=== PATIENT | male | born 1960 | race Caucasian/White ===

== ENCOUNTER 2024-12-28 11:36 | Inpatient (IN) | payer OTHER, SELFPAY ==
[2024-12-28] VITALS (12 sets, daily range): BP systolic 101–158; BP diastolic 54–91; PULSE 50–61; RESP 12–22; TEMP 36.2–36.6; O2SAT 95–99; BMI 25.7
--- NOTE | 2024-12-28 11:55 | DI.RAD.S_ITS ---
PROCEDURE: XR CHEST 1V INDICATIONS: Possible stroke TECHNIQUE: One view of the chest was acquired. COMPARISON: None. FINDINGS: Surgical changes and devices: None. Lungs and pleura: Lungs are clear. No pleural effusions or pneumothorax. Mediastinum: Mediastinal contours appear normal. Heart size is normal. Bones and chest wall: No suspicious bony lesions. Overlying soft tissues appear unremarkable. IMPRESSION: No acute cardiopulmonary abnormality is seen. Approved by: Jeerl Walters M.D. on 12/28/2024 at 11:11
--- NOTE | 2024-12-28 11:55 | EKG_ITS ---
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
--- NOTE | 2024-12-28 11:55 | DI.CT.S_ITS ---
PROCEDURE: CT ANGIO HEAD AND NECK INDICATIONS: Difficulty speech TECHNIQUE: After the administration of intravenous contrast, 1 mm thick sections acquired from the aortic arch through the [place] of [place]. MIP reformats of the arterial vasculature were utilized. COMPARISON: None. FINDINGS: Cerebral CT Angiogram: Internal carotid arteries: No acute findings. Intracranial ICA are patent with no significant stenosis. No occlusion. No aneurysm. Anterior cerebral arteries: Unremarkable. No significant stenosis. No occlusion. No aneurysm. Middle cerebral arteries: Unremarkable. No significant stenosis. No occlusion. No aneurysm. Posterior cerebral arteries: Unremarkable. No significant stenosis. No occlusion. No aneurysm. Basilar artery: Unremarkable. No significant stenosis. No occlusion. No aneurysm. Vertebral arteries: Unremarkable as visualized. Dural venous sinuses: Unremarkable given phase of enhancement. Other: Arterial phase appearance of the brain parenchyma is unremarkable. Neck CT Angiogram: Internal carotid arteries: Unremarkable. No significant stenosis. No dissection or occlusion. Common carotid arteries: Unremarkable. No significant stenosis. No dissection or occlusion. External carotid arteries: Unremarkable. No occlusion. Vertebral arteries: Unremarkable. No significant stenosis. No dissection or occlusion. Aortic Arch and Mediastinum: Partially visualized aortic arch unremarkable without evidence of aneurysm. Origins of the great vessels unremarkable. Other: Arterial phase soft tissues of the neck and chest are unremarkable. IMPRESSION: Unremarkable CT angiogram of the head and neck without large vessel occlusion, aneurysm or vascular malformation Approved by: Jerel Walters M.D. on 12/28/2024 at 11:36
--- NOTE | 2024-12-28 11:55 | DI.CT.S_ITS ---
PROCEDURE: CT STROKE Left maxillary mucosal retention cyst INDICATIONS: Positive BE-FAST, Stroke symptoms TECHNIQUE: Noncontrast 4.5 mm thick angled axial sections acquired from the foramen magnum to the vertex, with coronal reformats. For radiation dose reduction, the following was used: automated exposure control, adjustment of mA and/or kV according to patient size. COMPARISON: None. FINDINGS: Image quality: Diagnostic. CSF spaces: Basal cisterns are patent. No extra-axial fluid collections. Ventricles are normal in size and shape. Brain: No midline shift. No intracranial mass effect or hemorrhage. Campos- white matter interface is normal. Skull and face: Calvarium and visualized facial bones are intact, without suspicious lesions. Sinuses: Visualized sinuses and mastoids are clear. IMPRESSION: No acute intracranial pathology. Note: Critical results were discussed with Dr. Farrell at 11:09 AM [place] time on 12/28/24 Approved by: Jerel Walters M.D. on 12/28/2024 at 11:11
--- NOTE | 2024-12-28 11:56 | ED_ITS ---
HPI - General Adult General Chief complaint: Neuro Symptoms/Deficit Stated complaint: Little confused;having hard time speaking/thinking Time Seen by Provider: 12/28/24 11:54 History of Present Illness HPI narrative: 64 years old male came today after having difficulty speech noticed at 8 45 this morning when he put the hand gel management department chair in the console of his car and told his that he put the tooth paste instead of hand management department chair. His asked him you mentioned tooth paste and he was having difficulty talking back with hesitancy. After the he was able to talk but some difficulty off and on. He denied any numbness weakness on his face, his arm or his legs, headache, nausea vomiting, chest pain, shortness of breath, urine problem, diarrhea, constipation, fever, runny nose, sore throat, coughing. Two days ago he complained of chest pain but went away. Related Data Allergies Allergy/AdvReac Type Severity Reaction Status Date / Time Penicillins Allergy Verified 12/28/24 11:59 Review of Systems Review of Systems Narrative: Positive for difficulty speech. Negative for chest pain, shortness of breath, nausea vomiting, headache, fever, runny nose, sore throat, coughing, urine problem, diarrhea, constipation, numbness weakness on his legs, facial droop. Exam Initial Vital Signs Initial Vital Signs: Vital Signs Pulse Rate 50 L 12/28/24 11:48 Respiratory Rate 19 12/28/24 11:48 Pulse Oximetry 98 12/28/24 11:48 Scores NIH Stroke Scale Level of Conciousness: Alert, keenly responsive Ask month/age: Answers both questions correctly. Open/close eyes, close hand: Performs both tasks correctly Best gaze horizontal: Normal Visual cantu: No visual loss Facial palsy: Normal symetrical movement Left arm drift: No drift for full 10 sec Right arm drift: No drift for full 10 sec Left leg drift: No drift for full 5 sec Right leg drift: No drift for full 5 sec Limb ataxia: Absent Sensory on face/arms/legs: Normal, no sensory loss Best language: No aphasia, normal Dysarthria: Mild to mod,some slurring Extinction or inattention: No abnormality Total NIH Stroke scale score: 1 Course Orders Ordered: ED Orders 12/28/24 11:50 Complete Blood Count AUTO DIFF Stat Comprehensive Metabolic Panel Stat PTT Partial Thromboplastin Ian Stat Prothrombin Time INR Stat Troponin & CK Cardiac Panel Stat 12/28/24 11:[address] angio head and neck Stat XR chest 1V Stat EKG-12 Lead Stat 12/28/24 11:58 MR head/brain wo con Stat 12/28/24 14:27 UA Complete [Urinalysis and Microscopic] Stat Urine Drug Screen, Rapid Stat Ondansetron HCl (Ondansetron 4 Mg/2 Ml Inj) 4 mg IV NOW PRN PRN Reason: Nausea And Vomiting Ondansetron HCl (Ondansetron 4 Mg Odt) 4 mg PO NOW PRN PRN Reason: Nausea And Vomiting Vital Signs Vital signs: Vital Signs - 8 hr 12/28/24 11:48 12/28/24 11:55 12/28/24 12:05 Temperature 97.8 F Pulse Rate 50 L 50 L 50 L Respiratory Rate 19 16 Blood Pressure 146/77 H Pulse Oximetry 98 99 99 Oxygen Delivery Method Room Air 12/28/24 12:07 12/28/24 12:07 12/28/24 12:50 Temperature Pulse Rate 53 L 57 L Respiratory Rate 20 20 Blood Pressure 158/91 H Pulse Oximetry 98 Oxygen Delivery Method 12/28/24 12:51 12/28/24 12:51 12/28/24 13:00 Temperature Pulse Rate 53 L 58 L Respiratory Rate 22 14 Blood Pressure 137/79 Pulse Oximetry 99 99 Oxygen Delivery Method 12/28/24 13:00 12/28/24 13:30 12/28/24 14:00 Temperature Pulse Rate 57 L 59 L Respiratory Rate 20 Blood Pressure 148/90 H Pulse Oximetry 97 97 Oxygen Delivery Method Medical Decision Making Lab Data 12/28/24 11:50 12/28/24 11:50 Labs: Lab Results 12/28/24 12/28/24 12/28/24 Range/Units 11:50 14:20 14:20 WBC 5.5 (4.5-11.0) X10^3/uL RBC 4.78 (4.5-5.9) X10^6/uL Hgb 15.3 (13.5-17.5) g/dL Hct 44.3 (41-53) % MCV 92.6 (80-100) fL MCH 31.9 (26-34) PG MCHC 34.5 (30-36) % RDW 12.3 (11.6-14.8) % Plt Count 202 (150-400) X10^3/uL Neut % (Auto) 49.9 L (50-75) % Lymph % (Auto) 37.6 (25-40) % [place] % (Auto) 9.8 (3-14) % Eos % (Auto) 2.2 (2-4) % Baso % (Auto) 0.5 (0-2) % Neut # (Auto) 2700 (2585-4326) /uL Lymph # (Auto) 2100 (0854-7586) /uL [place] # (Auto) 500 (0-900) /uL Eos # (Auto) 100 (0-450) /uL Baso # (Auto) 0 (0-100) /uL PT 11.7 (9.4-12.5) SECONDS INR 1.0 (0.9-1.3) APTT 29 (25.1-36.5) SECONDS Sodium 140 (137-145) mmol/L Potassium 4.2 (3.4-5.1) mmol/L Chloride 104 (98-107) mmol/L Carbon Dioxide 29 (22-32) mmol/L BUN 17 (9-20) mg/dL Creatinine 0.92 (0.66-1.25) mg/dL Estimated GFR > 60 (>60) mL/min BUN/Creatinine Ratio 18.5 (6-22) Glucose 95 (70-99) mg/dL Calcium 9.2 (8.4-10.2) mg/dL Total Bilirubin 1.0 (0.2-1.3) mg/dL AST 31 (17-59) IU/L ALT 25 (<50) IU/L Alkaline Phosphatase 74 (38-126) U/L Total Creatine Kinase 85 (55-170) U/L Troponin I < 0.012 (0.01-0.034) ng/mL Total Protein 7.8 (6.3-8.2) g/dL Albumin 4.7 (3.5-5.0) g/dL Globulin 3.1 (1.7-4.1) g/dL Albumin/Globulin Ratio 1.5 (1.0-2.8) Urine Color Yellow Urine Appearance Clear Urine pH 6.5 Normal (4.5-8.0) Ur Specific [place] 1.015 (1.000-1.035) Urine Protein 2+ H (Negative) Urine Glucose (UA) Negative (Negative) g/dL Urine Ketones Negative (NEGATIVE) Urine Occult Blood Negative (Negative) Urine Nitrate Negative (Negative) Urine Bilirubin Negative (NEGATIVE) Urine Urobilinogen 0.2 (0.2) E.U./dL Ur Leukocyte Esterase Negative (NEGATIVE) Urine RBC None seen (0-5/HPF) Urine WBC 0-1/hpf (0-5/HPF) Ur Squamous Epith Cells None seen (0-5/HPF) Urine Bacteria Few (2-10) H (None) Ur Culture Indicated? Cult not indicated Vol Urine Centrifuged 10ml (spun) U Opiates 300ng/mL cut Negative (Negative) Ur Oxycodone Screen Negative (Negative) Urine Methadone Screen Negative (Negative) Ur Barbiturates Screen Negative (Negative) U Tricyclic Antidepress Negative (Negative) Ur Phencyclidine Scrn Negative (Negative) Ur Amphetamines Screen Negative (Negative) U Methamphetamines Scrn Negative (Negative) Ur MDMA Scrn (Ecstasy) Negative (Negative) U Benzodiazepines Scrn Negative (Negative) Urine Cocaine Screen Negative (Negative) U Marijuana (THC) Screen Negative (Negative) Urine Specific [place] Normal (Normal) Ur Creatinine Normal (Normal) [facility] Narrative Medical decision making narrative: 64 years old male came today after having difficulty speech noticed at 8 45 this morning when he put the hand gel management department chair in the console of his car and told his that he put the tooth paste instead of hand management department chair. His asked him you mentioned tooth paste and he was having difficulty talking back with hesitancy. After the he was able to talk but some difficulty off and on. He denied any numbness weakness on his face, his arm or his legs, headache, nausea vomiting, chest pain, shortness of breath, urine problem, diarrhea, constipation, fever, runny nose, sore throat, coughing. Two days ago he complained of chest pain but went away. 12:11 p.m. I got a phone call from radiologist about CT brain without contrast showed no acute finding. Neuro exam showed difficulty naming objects. Otherwise neuro exam showed no focal deficits. No facial droop. EOM was intact. No sign of head injury. His alert oriented x4 with a acute distress. His CV exam, lung exam, abdominal exam were normal. Sensation was equal on both arms and legs. Normal [id number] test both legs. 2:32 p.m. I discussed the case with [facility] stroke neurologist Dr. Gallardo recommended aspirin 325 mg, Plavix 300 mg 1st dose then 75 mg for 21 days then the patient can continue with aspirin 325 mg daily. Lipitor 40 mg, neuro checks, shelter monitor, echocardiogram, blood pressure management and could start him on amlodipine if hypertension. I discussed the case with our hospitalist and the patient was accepted to the hospital.
--- NOTE | 2024-12-28 11:58 | DI.MRI.S_ITS ---
PROCEDURE: MR HEAD/BRAIN WO CON INDICATIONS: Difficulty speech TECHNIQUE: Noncontrast axial T1 spin echo, axial T2 fast spin echo, sagittal and axial FLAIR, coronal T2 fast spin echo, axial gradient echo, axial diffusion and ADC through the brain. COMPARISON: [facility], CT, CT STROKE, 12/28/2024, 11:56. FINDINGS: CSF Spaces: Basal cisterns are patent. No extra-axial fluid collections. Ventricles are normal in size and shape. Brain: Restricted diffusion noted in the anterior left thalamus. Susceptibility weighted sequence unremarkable. No intracranial hemorrhage or extra-axial fluid collections Skull and face: Calvarium has normal marrow signal. Orbits appear normal. Sinuses: Sinuses and mastoids are clear. IMPRESSION: Acute to subacute anterior left thalamic infarct Approved by: Jerel Walters M.D. on 12/28/2024 at 12:49
[2024-12-28 12:01] LABS: Add Manual Diff / Slide Review NO; Hematocrit 44.3 % (41-53); Hemoglobin 15.3 g/dL (13.5-17.5); Lymphocytes Absolute Auto 2100 /uL (1100-4500); Mean Corpuscular HGB Conc 34.5 % (30-36); Mean Corpuscular Hemoglobin 31.9 PG (26-34); Mean Corpuscular Volume 92.6 fL (80-100); Platelet Count 202 X10^3/uL (150-400)
[2024-12-28 12:11] LABS: INR 1.0 (0.9-1.3); Prothrombin Time 11.7 SECONDS (9.4-12.5)
[2024-12-28 12:13] LABS: PTT Partial Thromboplastin Tim 29 SECONDS (25.1-36.5)
--- NOTE | 2024-12-28 12:13 | PC.NURSE ---
64 yo M arrives with . lives in [place] and at 0845 in the car, incorrectly referred to the hand apprentice painter neckties as toothpaste. is having as hard time articulating words. reports it is 1927 and quickly corrected himself. [facility] 1 for incorrectly identifying pictures--called the mouse and orange. No focal weakness and pt ambulated into the department. mild confusion that states is not baseline for him. noted to be bradycardic 50-53 without known history. denies cp and SOB.
[2024-12-28 12:14] LABS: Alanine Aminotransferase 25 IU/L (<50); Albumin 4.7 g/dL (3.5-5.0); Albumin Globulin Ratio 1.5 (1.0-2.8); Alkaline Phosphatase 74 U/L (38-126); Blood Urea Nitrogen 17 mg/dL (9-20); Calcium 9.2 mg/dL (8.4-10.2); Carbon Dioxide 29 mmol/L (22-32); Chloride 104 mmol/L (98-107); Creatine Kinase 85 U/L (55-170); Estimated Glomerular Filt Rate > 60 mL/min (>60); Globulin 3.1 g/dL (1.7-4.1); Glucose 95 mg/dL (70-99); HEMOLYSIS < 15 (0-50); Potassium 4.2 mmol/L (3.4-5.1); Sodium 140 mmol/L (137-145); Total Protein 7.8 g/dL (6.3-8.2)
[2024-12-28 12:26] LABS: Troponin I < 0.012 ng/mL (0.01-0.034)
[2024-12-28 14:37] LABS: Appearance Urine UA CLEAR; Bilirubin Urine UA NEGATIVE (NEGATIVE); Color Urine UA YELLOW; Glucose Urine UA NEGATIVE (Negative); Ketones Urine UA NEGATIVE (NEGATIVE); Leukocyte Esterase Urine UA NEGATIVE (NEGATIVE); Nitrite Urine UA NEGATIVE (Negative); Occult Blood Urine UA NEGATIVE (Negative); Protein Urine UA 2+ (Negative); Specific Gravity Urine UA 1.015 (1.000-1.035); Urobilinogen Urine UA 0.2 E.U./dL (0.2); pH Urine UA 6.5 (4.5-8.0)
[2024-12-28 14:42] LABS: Culture Indicated Urine Cult Not Indicated
[2024-12-28 14:43] LABS: UR Morphine/Opiate cutoff 300 Negative (Negative); Ur Specific Gravity Normal (Normal); Urine MDMA Negative (Negative); Urine Methamphetamines Negative (Negative); Urine Tetrahydrocannabinol Negative (Negative); Urine Tricyclic Antidepressant Negative (Negative)
[2024-12-28] MEDS: ASPIRIN EC 325 MG TABLET PO (14:55)
[2024-12-28] MEDS: CLOPIDOGREL 75 MG TABLET 300 MG PO (14:55)
--- NOTE | 2024-12-28 16:15 | P.HP_ITS ---
History of Present Illness History of Present Illness Date Patient Seen: 12/28/24 Time Patient Seen: 16:46 Chief complaint: Little confused;having hard time speaking/thinking Narrative: Patient was a 64-year-old male who presented with behaviors and some speech difficulties. He was up from [place] with his who is working in [employer] today. He woke up not feeling quite right and she detected some odd behaviors in the car including putting toothpaste in the Consul in the middle of the front seat for unclear reasons. She also noted some odd statements. She told him to take a nap thinking he might have been short on sleep. His symptoms however were persistent. She brought him to the ED. there he had a family normal neurologic exam but has had some communication effects. Imaging did indicate a brainstem infarct which is acute. He was no history of TIA or stroke. He had no antecedent symptoms. [facility], [facility] Social History household members: spouse Smoking Status: Never smoker alcohol intake: never Meds Home Medications and Allergies Home Medications ?Medication ?Instructions ?Recorded ?Confirmed ?Type inhalat.spacing dev,large mask 12/28/24 12/28/24 Hist ory (Compact Space Chamber-Lrg Mask) Allergies Allergy/AdvReac Type Severity Reaction Status Date / Time Penicillins Allergy Verified 12/28/24 11:59 Review of Systems Review of Systems Narrative: All else reviewed and otherwise unremarkable except as noted in the history and physical. No recent headaches, or trauma. Exam Vital Signs (past 8 hours): - 12/28/24 11:48 12/28/24 11:55 12/28/24 12:05 Temperature 97.8 F Pulse Rate 50 L 50 L 50 L Respiratory Rate 19 16 Blood Pressure 146/77 H Pulse Oximetry 98 99 99 Oxygen Delivery Method Room Air Oxygen Flow Rate 12/28/24 12:07 12/28/24 12:07 12/28/24 12:50 Temperature Pulse Rate 53 L 57 L Respiratory Rate 20 20 Blood Pressure 158/91 H Pulse Oximetry 98 Oxygen Delivery Method Oxygen Flow Rate 12/28/24 12:51 12/28/24 12:51 12/28/24 13:00 Temperature Pulse Rate 53 L 58 L Respiratory Rate 22 14 Blood Pressure 137/79 Pulse Oximetry 99 99 Oxygen Delivery Method Oxygen Flow Rate 12/28/24 13:00 12/28/24 13:30 12/28/24 14:00 Temperature Pulse Rate 57 L 59 L Respiratory Rate 20 Blood Pressure 148/90 H Pulse Oximetry 97 97 Oxygen Delivery Method Oxygen Flow Rate 12/28/24 15:56 Temperature 97.1 F L Pulse Rate 54 L Respiratory Rate 16 Blood Pressure 127/70 Pulse Oximetry 97 Oxygen Delivery Method Oxygen Flow Rate 0 Oxygen Delivery Method Room Air Oxygen Flow Rate 0 Narrative Exam Narrative: Objective ECG Impression: Intervals [place] Rate: 54 P: 43 [place]: 172 QRS: 47 QRSD: 92 T: 58 QT: 434 QTc: 411 Interpretive Statements Sinus bradycardia Imaging Multiple studies:: Radiologist's impression: Brain CT: No acute intracranial pathology. Chest x-ray: No acute cardiopulmonary abnormality is seen. Head neck CTA: Unremarkable CT angiogram of the head and neck without large vessel occlusion, aneurysm or vascular malformation Brain MRI: Acute to subacute anterior left thalamic infarct Labs 12/28/24 11:50 12/28/24 11:50 Labs: Laboratory Results - last 24 hr 12/28/24 12/28/24 12/28/24 11:50 14:20 14:20 WBC 5.5 RBC 4.78 Hgb 15.3 Hct 44.3 MCV 92.6 MCH 31.9 MCHC 34.5 RDW 12.3 Plt Count 202 Neut % (Auto) 49.9 L Lymph % (Auto) 37.6 [place] % (Auto) 9.8 Eos % (Auto) 2.2 Baso % (Auto) 0.5 Neut # (Auto) 2700 Lymph # (Auto) 2100 [place] # (Auto) 500 Eos # (Auto) 100 Baso # (Auto) 0 PT 11.7 INR 1.0 APTT 29 Sodium 140 Potassium 4.2 Chloride 104 Carbon Dioxide 29 BUN 17 Creatinine 0.92 Estimated GFR > 60 BUN/Creatinine Ratio 18.5 Glucose 95 Calcium 9.2 Total Bilirubin 1.0 AST 31 ALT 25 Alkaline Phosphatase 74 Total Creatine Kinase 85 Troponin I < 0.012 Total Protein 7.8 Albumin 4.7 Globulin 3.1 Albumin/Globulin Ratio 1.5 Urine Color Yellow Urine Appearance Clear Urine pH 6.5 Normal Ur Specific [place] 1.015 Urine Protein 2+ H Urine Glucose (UA) Negative Urine Ketones Negative Urine Occult Blood Negative Urine Nitrate Negative Urine Bilirubin Negative Urine Urobilinogen 0.2 Ur Leukocyte Esterase Negative Urine RBC None seen Urine WBC 0-1/hpf Ur Squamous Epith Cells None seen Urine Bacteria Few (2-10) H Ur Culture Indicated? Cult not indicated Vol Urine Centrifuged 10ml (spun) U Opiates 300ng/mL cut Negative Ur Oxycodone Screen Negative Urine Methadone Screen Negative Ur Barbiturates Screen Negative U Tricyclic Antidepress Negative Ur Phencyclidine Scrn Negative Ur Amphetamines Screen Negative U Methamphetamines Scrn Negative Ur MDMA Scrn (Ecstasy) Negative U Benzodiazepines Scrn Negative Urine Cocaine Screen Negative U Marijuana (THC) Screen Negative Urine Specific [place] Normal Ur Creatinine Normal Assessment & Plan Assessment & Plan narrative: 1. Acute CVA, active. PLAN: -discussed with tele stroke, recommendations for dual antiplatelet therapy with a Plavix load as well as high-dose statin. -serial NIH. -PT, OT, and speech evaluations. Anticipate 2 midnights in the hospital, supports inpatient status. Full resuscitation is proxy decision maker. Time-Based Coding :: 35 min spent with patient and on the chart (including review of chart, obtaining history, exam, reviewing outside data, placing orders, documenting exam and treatment plan, and counseling patient) on 12/28. Quality VTE Deep Vein Thrombosis/Pulmonary Embolism Present on Admission: No MIPS - Admit I confirm the patient?s Advance Care Plan is present, Code status is documented, Surrogate decision maker is in patient?s record [If Yes, STOP here]: Yes MIPS - Meds 'Current medications' to include all prescriptions, [id number] products, herbals, cannabis/cannabidiol products, and vitamin/mineral/dietary (nutritional) supplements. I have utilized all available resources to obtain, update, or review the patient?s current medications. [If Yes, STOP here]: Yes
[2024-12-28 16:53] LABS: Cholesterol 230 mg/dL (140-199); HDL Cholesterol 37 mg/dL (40-60); Triglycerides 96 mg/dL (35-150)
[2024-12-28 16:55] LABS: Hemoglobin A1C% w Est Avg Glu 5.6 % (4.0-6.0)
[2024-12-28] MEDS: ATORVASTATIN 20 MG TABLET 80 MG PO (20:13)
[2024-12-28] MEDS: SODIUM CHLORIDE 0.9% FLUSH 10 ML IV (20:13)
[2024-12-29 05:00] VITALS: BP 105/65; PULSE 52; RESP 18; TEMP 36.2; O2SAT 96
[2024-12-29 06:12] LABS: Thyroid Stimulating Hormone 1.52 uIU/mL (0.47-4.68)
[2024-12-29 08:00] VITALS: BP 126/72; PULSE 59; RESP 16; TEMP 36; O2SAT 96
--- NOTE | 2024-12-29 09:48 | PT.IIE ---
Current Diagnoses Cerebral infarction, unspecified (12/28/24) Physical Therapy Inpatient Evaluation/Re-Eval M1 PT IP Prior Functional Status Start: 12/29/24 09:35 Freq: NEEDED Status: Active Protocol: Document 12/29/24 09:19 DCW (Rec: 12/29/24 09:47 DCW [id number]) Medical Review Prior Functional Status Medical History Yes Reviewed Communication Makes needs known Mobility and Gait Independent Activities of Daily Independent Living and IADL's Prior Functional Independent Level (Other details ) Social History Household Members spouse Living Arrangements House Number of Floors ( Two Floors Floors) Number of Stairs To 1 Enter/Railing? M2 PT-IP Current Condition Start: 12/29/24 09:35 Freq: NEEDED Status: Active Protocol: Document 12/29/24 09:19 DCW (Rec: 12/29/24 09:47 DCW [id number]) Physical Therapy Current Condition Current Condition Evaluation Date 12/29/24 Treatment Diagnosis Confusion, memory and word finding issues, fatigue Onset Date 12/28/24 M3 PT-IP Subjective Start: 12/29/24 09:35 Freq: NEEDED Status: Active Protocol: Document 12/29/24 09:19 DCW (Rec: 12/29/24 09:47 DCW [id number]) Subjective Physical Therapy Visit Type Type Initial Evaluation Visit Start Time 09:19 Visit Stop Time 09:38 Notes Pt supine in bed upon therapist entering. Agreeable to therapy. Pt notes he feels much better than yesterday, just tired. Denies any pain. Number of UTILITY AGENT Visits 0 Physical Therapy Visit Comments Patient Comments I feel better than I thought I would today. Therapy Pain Assessment Pain Present Pain Present Denied Pain M4 PT-IP Mobility and Gait Start: 12/29/24 09:35 Freq: NEEDED Status: Active Protocol: Document 12/29/24 09:19 DCW (Rec: 12/29/24 09:47 DCW [id number]) PT-Bed Mobility Assessment Rolling Level of Assist Independent Supine to Sit Supine to Sit Independent Sit to Supine Sit to Supine Independent Scooting Scooting to Edge of Independent Bed PT-Transfer Assessment Sit to and From Stand Sit to and from Independent Stand Equipment Transfer Assistive None Device Gait Assessment Gait Gait Assistance Standby Assistance Required: Distance (Feet) 200 Able to Maintain Yes Weight Bearing Status During Gait Assistive Devices Assistive Device Gait Belt Gait Deviations General Gait Pattern Within Normal Limits Stair Climbing Assessment Evaluation Level of Assist On Independent Stairs Devices Stair Climbing Left Railing,Right Railing Assistive Devices Technique/Endurance Stair Climbing Ascend and Descend Direction Stair Climbing Step Over Step Technique Number of Steps 3 Climbed Query Text: Stair Climbing Set # 4 Repetitions (reps) Comments Stair Climbing Pt ascended and descended steps independently with use Comments of bilateral rail. PT-Balance Assessment Sitting Balance and Reactions Static Sitting Normal Balance Ability Dynamic Sitting Normal Balance Ability Standing Balance and Reactions Static Standing Normal Balance Ability Dynamic Standing Normal Balance Ability Balance Tests Single Limb Standing 10+ seconds bilaterally Comments Other Balance Tests/ Stands EOB EO/EC without support for 20+ seconds Deviations/Treatment : M5 PT-IP Objective Assessments Start: 12/29/24 09:35 Freq: NEEDED Status: Active Protocol: Document 12/29/24 09:19 DC (Rec: 12/29/24 09:47 DC [id number]) Orientation Orientation/Cognition Level of Alertness Alert Orientation Name,Birthday,Month,Date,Year,Place,Situation Language Function Word Finding Difficulties Ability Safety Awareness Understands Safety Issues Memory Description No Deficits Noted Comments Mild word finding difficulties Gross Range of Motion Lower Extremity ROM Assessment Within Functional Limits Strength Lower Extremity Strength Assessment Within Functional Limits Coordination Assessment Gross Coordination Gross Coordination WNL M7 PT-IP Assessment and Plan Start: 12/29/24 09:35 Freq: NEEDED Status: Active Protocol: Document 12/29/24 09:19 DC (Rec: 12/29/24 09:47 DC [id number]) PT Summary Assessment and Plan Potential Rehabilitation Excellent Potential Status of Condition Stable at Evaluation Summary Assessment Summary Pt demonstrates largely independent function in bed mobility, transfers, gait, and stairs. No notable safety deficits seen at this time. Pt ambulates down hallway to stairs ~100', ascended/descended stairs x4, and then ambulated back to room independently with no LOB. Pt demonstrated some mild word finding difficulty near end of session, noted some fatigue. From a safety standpoint, pt likely to do well with discharge home when medically cleared. Does not appear to require further inpatient PT at this time. Frequency of Treatment Frequency Of Discharge Treatment Recommendations To Nursing Amount of Assist Independent,Standby Assistance Needed Discharge Recommendations PT Discharge Home Recommendations Transportation Needs Private Vehicle at Discharge
[2024-12-29] MEDS: ASPIRIN EC 81 MG TABLET PO (10:44)
[2024-12-29] MEDS: SODIUM CHLORIDE 0.9% FLUSH 10 ML IV ×2 (10:45→20:39)
[2024-12-29] MEDS: CLOPIDOGREL 75 MG TABLET PO (10:45)
--- NOTE | 2024-12-29 11:43 | CM.DANOTE ---
B DCP Assessment note pt is a 64yo M admitted with slurred speech and AMS. 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 echo pending. TINTER PHOTOGRAPH reviewed EMR. per chart, pt here visiting from out of town with spouse. per provider, speech improving, pending echo results may dc later today. per PT rec home no needs. no obvious CM needs identified per chart review. unable to meet with pt at this time due to triaging needs. P: home later today vs tomorrow with OP f/u. spouse to transport home. will continue to follow in case any additional DCP needs should arise JAKY Ignacio Discharge Planning/Care Management CM Discharge Assessment Start: 12/28/24 15:24 Freq: Status: Active Protocol: Document 12/29/24 11:42 SL (Rec: 12/29/24 11:43 SL [id number]) Discharge Planning Assessment Assigned Discharge JAKY Salinas Fabrication Engineer Provider out of town PCP Insurance Comment [employer] MCR DPOA/Assigned Spouse, Megan Designee Name Contact Information [phone] Advance Directives? No History Provided By Patient Prior Living House Arrangements Household Members spouse Type of Drives own vehicle transporation used prior to admit Independent with ADL Yes 's Is patient alert and Yes oriented? Barriers to No Discharge Discharge Plan Home Referrals Initiated None needed Review Status In Process Please Provide Date 12/29/24 Initial DC Assessment Was Performed Next Review Type Continued Stay Review
[2024-12-29 12:40] VITALS: BP 128/74; PULSE 55; RESP 16; TEMP 36.3; O2SAT 95
--- NOTE | 2024-12-29 14:23 | ST.IPSLE ---
Visit Care Team Role Provider Type Emily Farrell MD Emergency Provider Physician Referring Provider Specialty: Emergency Medicine Address: [address] [place] [address], [id number] Fax: Email: [email or web address] Jules Tran MD Admit Provider Physician Attending Provider Specialty: Internal Medicine Address: [address] [place] [address], [id number] Email: Current Diagnoses Cerebral infarction, unspecified (12/28/24) Speech-Language Pathology Speech/Language Eval RECORDER OF DEEDS Adult Cognitive Linguistic Eval Start: 12/29/24 13:56 Freq: Status: Active Protocol: Document 12/29/24 13:56 SS (Rec: 12/29/24 14:22 SS Desktop) Adult Cognitive Linguistic Evaluation Session Time Visit Start Time 13:25 Visit Stop Time 13:55 Total Visit Minutes 30 Visit Information Visit Number [address] Jules Tran MD Reason for Referral s/p brainstem infarct Setting Assessment Location Acute Care Visit Type Note Type Initial evaluation Next Note Type Next Note Type Treatment Note Patient Information Identification Type Name Patient History Per H&P: Patient was a 64-year-old male who presented with behaviors and some speech difficulties. He was up from [place] with his who is working in [employer] today. He woke up not feeling quite right and she detected some odd behaviors in the car including putting toothpaste in the Consul in the middle of the front seat for unclear reasons. She also noted some odd statements. She told him to take a nap thinking he might have been short on sleep. His symptoms however were persistent. She brought him to the ED. there he had a family normal neurologic exam but has had some communication effects. Imaging did indicate a brainstem infarct which is acute. He was no history of TIA or stroke. He had no antecedent symptoms. Assessment completed to assess pt's current cognitive- communication function and expressive-receptive language. 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 Pt reported new onset of word-finding difficulty and feeling forgetful . In conversation, pt was able to respond to all RECORDER OF DEEDS questions appropriately and appeared to understand complex questions/statements without overt difficulty. While most of his language was coherent and made sense given context, he made several statements that did not relate to the context (e.g., I'm trying to make sense of what is real in my head. I'm thinking in a dream). When RECORDER OF DEEDS asked him to clarify, he was not able to. Pt reported he was independent with all IADLs at baseline and lives with his spouse. Pt passed nursing swallowing screen and has not had swallowing difficulties. Additionally, dysarthria symptoms seem to have fully resolved. Mental Status Alert,Responsive,Cooperative Assessment Oral Motor No Examination Completed Informal Assessment Receptive Language No Normal Receptive Language Comprehension of complex yes/no questions,Following 2- Impairment(s) step commands,Following 3-step commands,Comprehension of conversation Expressive Language No Normal Expressive Language Divergent naming,Expression of complex thoughts/ideas Impairment(s) Pragmatic Language Yes Normal Speech Normal Yes Cognition Normal No Cognitive Impairment Short-term memory,Executive functioning,Reasoning, (s) Thought organization Formal Assessment Standardized Test/ [facility] Mental Status (UMS) Screener Type Administration Complete Results The [facility] Mental Status (UMS) Examination was used to obtain information regarding the patient?s cognitive abilities. The SLUMS consists of ten questions that assess delayed recall, verbal fluency, comprehension, calculations, attention, working memory, and orientation. A scored is calculated from a possible 30 points. Scores fall in one of three ranges describing a patient?s level of impairment based upon level of education. Patients who have completed high school are expected to score slightly higher on this test than those who have not. For someone with a high school education, WNL is 27-30. The SLUMS was completed on this date. Subtest scores are as follows: Orientation: 3/3 Immediate Recall: 5/5 (not calculated in total score) Numeric Calculation: 3/3 Divergent Namin/3 (total of 11) Delayed Recall: 1/5 Attention/Registration with Digit Span: 1/2 Clock Drawing (Visuospatial & Executive Functionin/ 4 Geometric Figures: 1/2 Short Story (memory/recall): 2/8 With at least a high school education, a total score of 15/30 falls within the dementia range which is indicative of at least a moderate cognitive- communication impairment. Specifically, pt had difficulty with word-finding and divergent naming when naming animals in 1 minute. He also had difficulty recalling objects given short delay, only recalling 1/5 . Pt had difficulty recalling details from a short story, recalling 2/4 correctly, indicating difficulty with short-term memory. Pt had difficulty with executive functioning. During the clock task, the numbers were not oriented correctly and the pt wrote in two 3's and a 14 for the 12. He adolfo seemingly random boxes for the hands. He placed an x in the square, instead of the triangle. However, he was not able to notice these errors and did not attempt to self-correct them. Findings/Results Language Function Mildly impaired Cognitive Function Moderately impaired Findings Pt presents with moderate cognitive-communication impairment. He presents with at least mild aphasia ( both expressive and receptive), though further testing is warranted to fully assess language function. Cognitive-communication impairment is characterized by reduced word-finding, short-term memory, and executive functioning. Pt also presents with difficulty following multistep directions and complex conversation at times , though this is not consistent and difficult to assess as his language skills were WFL most of the time and difficulties were intermittent. Pt is at elevated risk of making critical errors with tasks such as medication management, financial services manager, and completion of associate partner, as well as everyday tasks that require adequate skills in the areas of attention, immediate and delayed memory, and executive functioning. Additionally, pt presents with concomitant occasional word-finding difficulty in conversation as well as impaired auditory comprehension of complex information. Recommend 1:1 skilled RECORDER OF DEEDS services with the goal of providing therapeutic education and training in use of cognitive-communication compensatory strategies, specifically targeting attention, immediate and delayed memory, and executive functioning for improved safety and independence in the home. Also recommend treatment targeting word-finding for improved communication to prevent communication breakdowns. Prognosis Prognosis Good Based on Cognitive status,Family support,Duration of symptoms/ severity,Time since onset Plan of Care Speech-Language Yes Treatment Frequency 5x/week Duration During admission Patient/Caregiver Described results of evaluation,Patient expressed Education understanding of evaluation,Patient expressed agreement with goals and treatment plans Short Term Goals 1. Patient will utilize compensatory word-finding strategies with 90% accuracy increase word-finding skills during complex conversational tasks. 2. Patient will implement 2 new internal/external compensatory strategies for memory with successful results to improve recall of important daily information and details from conversations. 3. Patient will increase metacognitive self-awareness as measured by accurately reflecting on task performance after completion in 90% of opportunities in order to increase insight and safety awareness. Back Pad Inspector Goals Patient will exhibit adequate cognitive-communication skills for discharge home with intermittent daily supervision using compensatory strategies as trained to facilitate safety and independence. Discharge Home with Home Health,Outpatient therapy Recommendations
--- NOTE | 2024-12-29 14:24 | PM.PN.1 ---
Subjective Subjective Interval history: S: Some ongoing cognitive issues with the his SLUMS. He was not able to recall 5 objects. No motor weakness. No speech deficits. O: VSS NAD, alert and oriented. Fluent speech. Lungs are clear, normal rate and effort. Heart is regular, no murmur gallop or rub. Abdomen is soft, non distended. Extremities are free of edema. Normal speech Motor strength 5/5 all extremities A/P: 1. Acute CVA, active. 2. Some acute cognitive deficits secodnary CVA. PLAN: -continue dual antiplatelet therapy with a Plavix load as well as high-dose statin. -PT, OT, and speech evaluations to continue. Requires a 2nd night of care in the hospital to monitor cognitive function. Anticipate 2 midnights in the hospital, supports inpatient status. Exam Vital Signs (past 8 hours): - 12/29/24 08:00 12/29/24 12:40 Temperature 96.8 F L 97.3 F L Pulse Rate 59 L 55 L Respiratory Rate 16 16 Blood Pressure 126/72 128/74 Pulse Oximetry 96 95 Oxygen Flow Rate 0 0 Oxygen Delivery Method Room Air Oxygen Flow Rate 0 Objective Labs 12/28/24 11:50 12/28/24 11:50 Labs: Laboratory Results - last 24 hr 12/28/24 12/28/24 12/28/24 11:50 14:20 14:20 POC Whole Bld Glucose Hemoglobin A1c 5.6 Triglycerides 96 Cholesterol 230 H LDL Cholesterol, Calc 174 H HDL Cholesterol 37 L TSH Urine Color Yellow Urine Appearance Clear Urine pH 6.5 Normal Ur Specific [place] 1.015 Urine Protein 2+ H Urine Glucose (UA) Negative Urine Ketones Negative Urine Occult Blood Negative Urine Nitrate Negative Urine Bilirubin Negative Urine Urobilinogen 0.2 Ur Leukocyte Esterase Negative Urine RBC None seen Urine WBC 0-1/hpf Ur Squamous Epith Cells None seen Urine Bacteria Few (2-10) H Ur Culture Indicated? Cult not indicated Vol Urine Centrifuged 10ml (spun) U Opiates 300ng/mL cut Negative Ur Oxycodone Screen Negative Urine Methadone Screen Negative Ur Barbiturates Screen Negative U Tricyclic Antidepress Negative Ur Phencyclidine Scrn Negative Ur Amphetamines Screen Negative U Methamphetamines Scrn Negative Ur MDMA Scrn (Ecstasy) Negative U Benzodiazepines Scrn Negative Urine Cocaine Screen Negative U Marijuana (THC) Screen Negative Urine Specific [place] Normal Ur Creatinine Normal 12/28/24 12/29/24 12/29/24 18:08 04:40 05:58 POC Whole Bld Glucose 91 95 Hemoglobin A1c Triglycerides Cholesterol LDL Cholesterol, Calc HDL Cholesterol TSH 1.52 Urine Color Urine Appearance Urine pH Ur Specific [place] Urine Protein Urine Glucose (UA) Urine Ketones Urine Occult Blood Urine Nitrate Urine Bilirubin Urine Urobilinogen Ur Leukocyte Esterase Urine RBC Urine WBC Ur Squamous Epith Cells Urine Bacteria Ur Culture Indicated? Vol Urine Centrifuged U Opiates 300ng/mL cut Ur Oxycodone Screen Urine Methadone Screen Ur Barbiturates Screen U Tricyclic Antidepress Ur Phencyclidine Scrn Ur Amphetamines Screen U Methamphetamines Scrn Ur MDMA Scrn (Ecstasy) U Benzodiazepines Scrn Urine Cocaine Screen U Marijuana (THC) Screen Urine Specific [place] Ur Creatinine PFSH Social History household members: spouse Smoking Status: Never smoker alcohol intake: never Assessment & Plan Time-Based Coding :: [TOTAL MINUTES] spent with patient and on the chart (including review of chart, obtaining history, exam, reviewing outside data, placing orders, documenting exam and treatment plan, and counseling patient) on [DATE]. Quality VTE Deep Vein Thrombosis/Pulmonary Embolism Present on Admission: No
[2024-12-29 16:40] VITALS: BP 134/69; PULSE 55; RESP 14; TEMP 36.2; O2SAT 93
--- NOTE | 2024-12-29 17:42 | PC.NURSE ---
Day shift note: Patient awake, alert oriented x4. Ambulating independently in room. NIH 1. Patient states difficulty expressing and finding words. Spouse states patient is able to articulate words fluently at baseline. Also, min difficulty with memory. VSS. Sinus Tien. No motor or sensory deficit, no speech impairment or visual disturbance. Mamta (spouse) at bedside providing supportive care. Calls appropriately for staff assist. Excellent PO intake, no difficulty swallowing. Voiding. Echo (performed at bedside this shift.
[2024-12-29 19:00] VITALS: BP 113/69; PULSE 58; RESP 18; TEMP 36.4; O2SAT 94
[2024-12-29] MEDS: ATORVASTATIN 20 MG TABLET 80 MG PO (20:39)
[2024-12-29 23:00] VITALS: BP 112/67; PULSE 56; RESP 20; TEMP 36.3; O2SAT 95
[2024-12-30 03:00] VITALS: BP 106/69; PULSE 56; RESP 18; TEMP 36.4; O2SAT 95
[2024-12-30 08:00] VITALS: BP 116/70; PULSE 60; RESP 18; TEMP 35.9; O2SAT 93
--- NOTE | 2024-12-30 09:01 | OT.IP.EVAL ---
Current Diagnoses Cerebral infarction, unspecified (12/28/24) Occupational Therapy Inpatient Evaluation/Re-Eval M1 OT IP Prior Functional Status Start: 12/30/24 08:48 Freq: Status: Active Protocol: Document 12/30/24 08:48 MADELINE (Rec: 12/30/24 09:01 [facility] Medical Review Prior Functional Status Medical History Yes Reviewed Communication Makes needs known. Some difficulty with word finding. Mobility and Gait Independent Activities of Daily Independent Living and IADL's Prior Functional Independent Level (Other details ) Social History Household Members spouse Living Arrangements House Number of Floors ( Two Floors Floors) Number of Stairs To Pt reports two half flights of 8 steps each to get to Enter/Railing? the second floor with B rails for the first flight and 1 rail for the second, 1 step to enter from outside Home Environment High Toilet,Tub/Shower Home Equipment Hand Held Shower M2 OT-IP Current Condition Start: 12/30/24 08:48 Freq: Status: Active Protocol: Document 12/30/24 08:48 MADELINE (Rec: 12/30/24 09:01 [facility]WYELISABET [facility]) Occupational Therapy Current Condition Current Condition Evaluation Date 12/30/24 Treatment Diagnosis CVA Diagnosis Onset Date 12/28/24 M3 OT- IP Subjective and Pain Start: 12/30/24 08:48 Freq: Status: Active Protocol: Document 12/30/24 08:48 MADELINE (Rec: 12/30/24 09:01 [facility]ENWYELISABET [facility]) OT- Subjective Occupational Therapy Visit Type Type Initial Evaluation Visit Start Time 08:20 Visit Stop Time 08:43 Occupational Therapy Visit Comments Patient Comments Pt was asleep in bed on entrance of OT. Pt woke and was agreeable to participating in OT eval before breakfast . Patient/Caregiver To return home. Goals OT Pain Assessment Pain Present Pain Present Denied Pain M4 OT- IP ADL's Start: 12/30/24 08:48 Freq: Status: Active Protocol: Document 12/30/24 08:48 MADELINE (Rec: 12/30/24 09:01 [facility]) OT BNM-Izye-Csdyaln General Evaluation Self-Feeding Ability Independent OT ADL-Grooming General Evaluation Grooming Ability Independent OT ADL-Oral Care Comments Oral Care Comments not observed, pt declined due to getting ready to eat breakfast OT ADL-Dressing General Eval Lower Body Dressing Independent Ability OT ADL-Toileting Comments OT Toileting not observed Comments OT ADL-Bathing Comments OT Bathing Comments not observed M5 OT- IP IADL's Start: 12/30/24 08:48 Freq: Status: Active Protocol: Document 12/30/24 08:48 MADELINE (Rec: 12/30/24 09:01 MADELINE Desktop) OT-Instrumental Activities of Daily Living Deficits IADL Deficits No Deficits Identified Home Safety Awareness Awareness of Need Good Awareness for Assistance at Home Ability to Problem Able to Problem Solve Solve Emergency Situations Medication Management Medication No Deficits Identified Management Money Management Money Management No Deficits Identified Meal Preparation Meal Preparation No Deficits Identified Manager Mortgage Manager Mortgage No Deficits Identified M6 OT- IP Functional Cognition Start: 12/30/24 08:48 Freq: Status: Active Protocol: Document 12/30/24 08:48 MADELINE (Rec: 12/30/24 09:01 MADELINE Desktop) Cognitive Factors Limiting Selfcare Function Cognitive Ability Level of Alertness Alert Patient Orientation Name,Age,Birthday,Month,Year,Day of Week,Place, Situation Attention Span Capable of Focused Attention,Capable of Sustained Ability Attention Ability to Follow Able to Follow One Step Commands,Able to Follow Multi- Commands Step Commands Cognitive Tests SLUMS See Speech Therapy eval for details. Pt scored a 15/[address] eval, ST to follow patient for cognition, OT will not duplicate services. OT- Vision and Hearing OT- Hearing Assessment OT- Hearing WFL Assessment OT- Vision Assessment Visual Acuity WFL,Glasses All The Time M7 OT- IP Mobility and Balance Start: 12/30/24 08:48 Freq: Status: Active Protocol: Document 12/30/24 08:48 MADELINE (Rec: 12/30/24 09:01 MADELINE Desktop) OT- Bed Mobility Assessment Supine to Sit Supine to Sit Assist Independent Scooting Scooting to Edge of Independent Bed OT-Transfer Assessment Sit to and From Stand Sit to and from Independent Stand Transfers Transfer Ability Independent Technique Transfer Destination Bed Devices Transfer Assistive Gait Belt Devices Comments Mobility Comments Pt performed bed mobility and then ambulated to the sink for hand hygiene prior to his meal. Pt does so with normal balance and good safety awareness. Pt is I with these mobilities. OT- Gait Assessment Gait Gait Assistance Independent Required: Distance (Feet) 10 Assistive Devices Assistive Device Gait Belt OT- Balance Assessment Sitting Balance and Reactions Static Sitting Normal Balance Ability Dynamic Sitting Normal Balance Ability Standing Balance and Reactions Static Standing Normal Balance Ability Dynamic Standing Normal Balance Ability M8 OT- IP Objective Assessments Start: 12/30/24 08:48 Freq: Status: Active Protocol: Document 12/30/24 08:48 MADELINE (Rec: 12/30/24 09:01 [facility] Desktop) OT Gross Range of Motion Upper Extremity Range of Motion Assessment Within Functional Limits OT Strength Upper Extremity Strength Assessment Within Functional Limits Shoulder 5 Elbow 5 Wrist 5 Hand 5 Hand Shipping Coordinator Strength Hand Dominance Right OT- Coordination Assessment Upper Extremity Finger to Nose Test Within Functional Limits Finger Tapping Test Within Functional Limits 9-Hole Peg Hand Test Hand Right Scoring Time 24 Interpretation Within Normal Range Left Scoring Time 31 Interpretation Within Normal Range OT-Muscle Tone Assessment Muscle Tone WNL Yes OT Sensation Assessment Comments Summary Comments No sensory deficits noted Edema Edema Absent M9 OT- IP Assessment and Plan Start: 12/30/24 08:48 Freq: Status: Active Protocol: Document 12/30/24 08:48 MADELINE (Rec: 12/30/24 09:01 [facility] Desktop) OT Summary Assessment and Plan Potential Analytic Complexity Low at Evaluation Summary OT Impairments Functional Cognition Progress Towards Safe For Discharge Goals Assessment Summary Pt is a 64 yo M who reports waking up on 12/28 with speech difficulties. Pt was having difficulties find words and per chart review was displaying odd behavior such as putting toothpaste on the consul of the front car seat. Pts CT scan was negative and MRI showed a L anterior thalamic infarct. Pt displays no notable difference in ROM, muscle strength, coordination, or sensation in either UE. Pt performs BADLs I'ly and functional mobility I'ly. Pt does display some difficulty with word finding during OT eval. Per ST evaluation, pt also displays cognitive deficits. ST has picked up patient to address these deficits, OT will not replicate services. D/C pt from skilled OT services as he is at baseline with OT scope of practice . No further services are indicated at this time. Frequency of Treatment Frequency Of Discharge Treatment Discharge Recommendations OT Discharge Home Recommendations Other Discharge ST outpatient Recommendations Transportation Needs Private Vehicle at Discharge
[2024-12-30] MEDS: CLOPIDOGREL 75 MG TABLET PO (09:49)
[2024-12-30] MEDS: ASPIRIN EC 81 MG TABLET PO (09:49)
[2024-12-30] MEDS: SODIUM CHLORIDE 0.9% FLUSH 10 ML IV (09:50)
--- NOTE | 2024-12-30 10:12 | PC.NURSE ---
Patient is alert and oriented x4, he states that he has had some cognitive delay but is feeling good at this time. He is able to lift both of his arms and legs, no vision issues and he has answered questions appropriately. Ambulating with one person assist. May go home later today.
[2024-12-30 12:00] VITALS: RESP 19
--- NOTE | 2024-12-30 12:26 | ST.IPTN ---
Visit Care Team Role Provider Type Emily Farrell MD Emergency Provider Physician Referring Provider Address: [address] [place] [address], [id number] Fax: Jules Tran MD Admit Provider Physician Attending Provider Address: [address] [place] [address], [place], [address] [employer]IVER Treatment Note [employer]IVER Treatment Note Start: 12/30/24 12:08 Freq: Status: Active Protocol: Document 12/30/24 12:09 SS (Rec: 12/30/24 12:25 SS DESKTOP) Speech Pathology Treatment Note Session Time Visit Start Time 11:05 Visit Stop Time 11:40 Total Visit Minutes 35 Visit Information Visit Number 2 Setting Treatment Setting Acute Care Visit Type Note Type Treatment Note General Information Patient History Per H&P: Patient was a 64-year-old male who presented with behaviors and some speech difficulties. He was up from [employer] with his who is working in [employer] today. He woke up not feeling quite right and she detected some odd behaviors in the car including putting toothpaste in the Consul in the middle of the front seat for unclear reasons. She also noted some odd statements. She told him to take a nap thinking he might have been short on sleep. His symptoms however were persistent. She brought him to the ED. there he had a family normal neurologic exam but has had some communication effects. Imaging did indicate a brainstem infarct which is acute. He was no history of TIA or stroke. He had no antecedent symptoms. Assessment completed to assess pt's current cognitive- communication function and expressive-receptive language. Pt demonstrated moderate cognitive- communication impairment and potential expressive/ receptive aphasia, though further assessment needed. Subjective Identification Type Name,Date of Others Present Family Observations/Patient Pt sitting in bed upon [employer]IVER arrival. His spouse was at Presentation bedside. Pt expressed he felt better today. His spouse stated he seems to be thinking more clearly today. Pt has been engaging in cognitively stimulating tasks, such as Duolingo and word games with family. Objective Short Term Goals 1. Patient will utilize compensatory word-finding strategies with 90% accuracy increase word-finding skills during complex conversational tasks. 2. Patient will implement 2 new internal/external compensatory strategies for memory with successful results to improve recall of important daily information and details from conversations. 3. Patient will increase metacognitive self-awareness as measured by accurately reflecting on task performance after completion in 90% of opportunities in order to increase insight and safety awareness. Propeller Inspector Goals Patient will exhibit adequate cognitive-communication skills for discharge home with intermittent daily supervision using compensatory strategies as trained to facilitate safety and independence. Treatment Activities Implemented pillbox task as pt will be discharging with multiple new medications and plans to use a pillbox at home. This task targets dynamic attention, executive functioning (working memory/planning and metacognitive self-awareness), problem solving, and short-term memory . Additionally provided education re: compensatory strategies for memory and word-finding. Assessment Patient Response to Good Treatment Rehab Potential Good Impairments Cognitive communication Identified Progress Towards Good Progress Goals Assessment of Improving Overall Progress Assessment of Utilizing printed medication labels on pill bottles, t Improvement sorted x5 medications across am/pm pillbox. He demonstrated independent use of compensatory strategies (e.g., double checking, moving completed meds to the other side of the table, finger scanning, thinking out loud). Educated pt and spouse in both internal and external compensatory strategies for memory. Provided educational handout outlining strategies for pt to reference. Education provided in the following external compensatory strategies: calendars/planners, memory journal, lists, placing notes around the home, timers/ alarms, medication boxes, putting items in the same place, and utilizing smart devices. Education provided in the following internal compensatory strategies: repetition, rehearsal, chunking, visualization, categorization, personal meaning, association, and acronyms. Pt expressed he is motivated to implement these strategies at home. While his short-term memory appears to be improving, he will benefit from intermittent supervision and assistance with IADLs from spouse, at least initially. Educated pt in strategies for improved word-finding with educational handout provided for patient to reference. [employer]IVER provided a verbal explanation and examples of ways to employ different strategies. Pt received education in the following: draw it, describe it, use a similar/related word, focus on the first letter, use gestures, state the category or topic, find the opposite word, and ask for more time/come back to it later if needed. While he demonstrated minimal word- finding difficulties during the session, encouraged pt to implement the above strategies in conversation and in preferred word games to increase ability to retrieve target words with more ease. Pt is discharging home today. Pt has consistently participated in speech therapy across inpatient rehabilitation stay and demonstrates improvements in short-term memory, sustained attention, word-finding, and improved problem solving with use of pillbox. Ongoing mild-moderate impairment with dynamic attention , executive functioning (difficulty with working memory /planning and intermittent response impulsivity), problem solving, and short-term memory. Recommend home health or outpatient speech therapy, as well as assistance with functional activities such as medication and financial supervisor. Pt and family education has been provided re: progress to date, recommendations, and resources. Reviewed with Goals,Progress Being Made,Home Exercise Program Patient Patient/Caregiver Excellent Understanding
--- NOTE | 2024-12-30 12:53 | PM.DS.1 ---
History of Present Illness History of Present Illness Chief complaint: Little confused;having hard time speaking/thinking Narrative: Patient was a 64-year-old male who presented with behaviors and some speech difficulties. He was up from [place] with his who is working in [employer] today. He woke up not feeling quite right and she detected some odd behaviors in the car including putting toothpaste in the Consul in the middle of the front seat for unclear reasons. She also noted some odd statements. She told him to take a nap thinking he might have been short on sleep. His symptoms however were persistent. She brought him to the ED. there he had a family normal neurologic exam but has had some communication effects. Imaging did indicate a brainstem infarct which is acute. He was no history of TIA or stroke. He had no antecedent symptoms. Discharge Providers Provider Date of admission: 12/28/24 14:48 Discharge Date: 12/30/24 Primary care physician: Jani Jin Consults: 12/28/24 16:12 Consult to Discharge Planning Routine Comment: Consult to Occupational Therapy Evaluate & Treat Comment: Physician Instructions: Evaluate and treat Consult to Physical Therapy Evaluate & Treat Comment: Physician Instructions: Evaluate and Treat Consult to Speech Therapy Evaluate & Treat Comment: Physician Instructions: Evaluate and treat Discharge provider: Jules Tran MD Summary Hospital Course Discharge Diagnosis: 1. Acute CVA, active. 2. 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 Hospital Course: He was admitted with some language deficits and imaging indicated an acute brainstem infarct. The patient was treated with dual antiplatelet therapy and evaluated by Physical and Occupational therapy. He had no motor deficits. He did have some executive function and language deficits identified with speech therapy. These improved over the last 24 hours of observation. In the day of discharge patient still had some minor issues with word finding. He was felt to be stable for discharge and agrees to follow up with his PCP in [facility] in the next week. He will be on dual antiplatelet therapy for 21 days and then aspirin monotherapy. High-dose atorvastatin is also recommended and will be started. He was advised to call 911 for acute stroke symptoms. Status at Discharge Cognitive/behavioral status at discharge: oriented Functional status at discharge: independent ambulation Overall status at discharge: patient is progressing back to baseline Time Spent with Patient Time spent: Greater than 30 minutes Exam Vital Signs (past 8 hours): - 12/30/24 08:00 Temperature 96.7 F L Pulse Rate 60 Respiratory Rate 18 Blood Pressure 116/70 Pulse Oximetry 93 Oxygen Flow Rate 0 Oxygen Delivery Method Room Air Oxygen Flow Rate 0 Narrative Exam Narrative: NAD, alert and oriented. Fluent speech. Lungs are clear, normal rate and effort. Heart is regular, no murmur gallop or rub. Abdomen is soft, non distended. Extremities are free of edema. Cranial nerves are intact, normal motor strength and gait. He has no facial droop. Judgment appears to be normal. He was intermittent word-finding difficulty. Objective ECG Impression: Intervals [place] Rate: 54 P: 43 SD: 172 QRS: 47 QRSD: 92 T: 58 QT: 434 QTc: 411 Interpretive Statements Sinus bradycardia Imaging Multiple studies:: Radiologist's impression: Brain CT: No acute intracranial pathology. Chest x-ray: No acute cardiopulmonary abnormality is seen. Head neck CTA: Unremarkable CT angiogram of the head and neck without large vessel occlusion, aneurysm or vascular malformation Brain MRI: Acute to subacute anterior left thalamic infarct ECHO: Normal LV EF, mild aortic insufficiency. The patient has normal right-sided pressures, and no evidence of shunt. Labs 12/28/24 11:50 12/28/24 11:50 [facility] Social History household members: spouse Smoking Status: Never smoker alcohol intake: never Discharge Assessment & Plan Assessment and Plan Assessment: 1. Acute CVA, active. 2. 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 Plan of Treatment: Discharge on dual antiplatelet therapy 21 days, high dose atorvastatin. PCP follow up as recommended within 1 week. Discharge Plan Discharge Plan Patient Disposition: Home Provider Discharge Comment: Stable for discharge home on standard medical therapy for stroke. Close follow up with PCP at [facility] is encouraged. Will need referral for outpatient speech therapy as well. Discharge orders & Medications Prescriptions: New atorvastatin 20 mg Tablet 80 mg PO BEDTIME Qty: 30 6RF clopidogrel 75 mg Tablet 75 mg PO DAILY Qty: 19 0RF aspirin 81 mg Tablet,Delayed Release (Dr/Ec) 81 mg PO DAILY Qty: 30 6RF Continued (DME) Compact Space Chamber-Lrg Mask Spacer MISCELLANEOUS Patient Comments: To use with inhaler Discharge Health Status Multidrug resistant organism: No MDRO Diet/Activity/Treatments Diet: Low-cholesterol Visit Report/Discharge Packet Instructions: Atorvastatin, Clopidogrel Stand Alone Forms: Patient Portal/API, Stroke Signs & Symptoms Quality VTE Deep Vein Thrombosis/Pulmonary Embolism Present on Admission: No
--- NOTE | 2024-12-30 13:06 | CM.DPC ---
DCP Discharge Home Per ST, pt improved some today and recommending outpt ST vs HH but pt ambulated well with PT/OT and does not meet criteria for homebound status. Per , pt medically stable to discharge home today with outpt follow up with his Providers in [facility] where he lives. Spouse will provide transport home and assist as needed. No further SW needs at this time. JAKY Morris
== END 2024-12-30 14:25 | disposition home or self-care (01) | DRG 66 ==
LOC: ED 13:53 → AC 14:48
PROVIDERS: Admitting Provider Hospitalist; Emergency Provider Emergency Medicine; Referring Provider Emergency Medicine; Visit Provider Hospitalist
DX: I63.9 Cerebral infarction, unspecified (principal); R41.89 Other symptoms and signs involving cognitive functions and awareness; R47.9 Unspecified speech disturbances; R29.701 NIHSS score 1; R29.702 NIHSS score 2
CPT/HCPCS: 36415; 70450; 70496; 70498; 70551; 71045; 80053; 80061; 80305; 81001; 82550; 82962; 83036; 84443; 84484; 85025; 85610; 85730; 92507; 92523; 93005; 93306; 97161; 99285; Q9967